=== PATIENT | male | born 1980 | race Hispanic/Latino ===

== ENCOUNTER 2025-06-09 14:35 | Emergency (ER) | payer MEDICAID, SELFPAY ==
[2025-06-09 14:40] VITALS: BP 110/83
[2025-06-09 14:44] VITALS: BMI 25.9
[2025-06-09] MEDS: NSS 1000 IV (14:53)
[2025-06-09 15:00] VITALS: BP 95/57
[2025-06-09 15:10] LABS: Hematocrit 40.4 % (39.0-52.0); Hemoglobin 13.7 g/dL (13.0-18.0); Mean Corp Hgb Conc. 33.9 g/dL (33.0-37.0); Mean Corpuscular Volume 94.6 fL (80.0-94.0); Nucleated Red Blood Cells % 0 % (-); Platelet Count 248 10^3/uL (130-400); Red Cell Dist. Width 13.4 % (11.5-14.5)
--- NOTE | 2025-06-09 15:23 | ED.GENMED ---
History of Present Illness
<Mendel Phillips MD - Last Filed: 06/09/25 19:59>
General
Chief Complaint: Overdose Unintentional
Source: patient and ambulance crew
Exam Limitations: clinical condition
Time Seen by Provider: 06/09/25 14:47
History of Present Illness
History of Present Illness:
44-year-old male apparently was at work and was staring. He was slow to respond at work. He became belligerent. Threw a chair. Police were called. Threw water at an officer. Then went into a karate kick move to defend himself. Admits to some
alcohol and THC and PCP last evening. Denies suicidal or homicidal ideation. Denies any complaints. Required 5 of Versed prior to ER arrival.
Past History
<Mendel Phillips MD - Last Filed: 06/09/25 19:59>
Past History
ED Past Medical History: Other (Alcohol/substance abuse)
ED Past Surgical History: Tonsilectomy and Other (ENT)
Social History
Tobacco: Smoker
Alcohol: Occasional
Drug: Other (PCP)
Employment: Employed
Review of Systems
<Mendel Phillips MD - Last Filed: 06/09/25 19:59>
Review of Systems
All Other Systems: Not applicable
Respiratory: Reports no symptoms
Cardiac: Reports no symptoms
ABD/GI: Reports no symptoms
Phy Exam
<Mendel Phillips MD - Last Filed: 06/09/25 19:59>
Physical Exam
Physical Exam:
GENERAL: Lethargic. Sleeping. However easily arousable. Will awaken and talk. Awake alert and oriented. Knows the president. No signs of trauma.
EYE: Orbits normal.
NECK: Supple, no significant adenopathy.
ENT: Pharynx without erythema
CARDIAC: Regular rate and rhythm without any obvious murmurs.
LUNGS: Clear breath sounds,normal
ABDOMEN: Soft, without focal tenderness or distention
NEUROLOGICAL: Alert and oriented , grossly non-focal. Lethargic and appears intoxicated.
SKIN: Warm and dry, no rash or lesion, no discoloration, skin intact.
MUSCULOSKELETAL: No edema,no deformity.Good color
PSYCH: Normal and appropriate interaction.
Course
<Mendel Phillips MD - Last Filed: 06/09/25 19:59>
Orders/Labs/Results
Orders:
Orders
06/09/25 14:46
EKG [Electrocardiogram (*1)] Urgent
Reason for Study: Chest Pain
EKG- Treatment ONCE
06/09/25 14:47
Cardiac Monitoring- Treatment ONCE
IV Insert/Care/Rem.- Treatment PRN
0.9% Sodium Chloride 1000 ml [Nss] 1,000 ml IV BOLUS
Pulse Ox/cont/shift [RESP] Stat
Quantity: 1
06/09/25 14:50
Acetaminophen Urgent
Alcohol Urgent
Complete Blood Count/With Diff Urgent
Comprehensive Metabolic Panel Urgent
Salicylate Urgent
06/09/25 18:12
Midazolam HCl [Versed] 5 mg .ROUTE .STK-MED ONE
06/09/25 18:16
Midazolam HCl [Versed] 5 mg IV NOW STA
06/09/25 18:35
CT Head W/o Iv Contrast Urgent
Comment:
Reason For Exam: Change in mental status
06/09/25 19:22
Haloperidol Lactate [Haldol] 5 mg .ROUTE .STK-MED ONE
Haloperidol Lactate [Haldol] 5 mg IV NOW STA
Midazolam HCl [Versed] 2 mg .ROUTE .STK-MED ONE
Midazolam HCl [Versed] 2 mg IV NOW STA
06/09/25 19:24
Fentanyl, Urine Urgent
Urinalysis Reflex To Culture Urgent
Date Specimen was Collected: 06/09/25
Time Specimen was Collected: 15:28
Urine Drug Abuse Screen Urgent
Date Specimen was Collected: 06/09/25
Time Specimen was Collected: 15:28
Urine Microscopic Reflex Cult Urgent
06/09/25 19:26
Electrocardiogram (*1) Urgent
Reason for Study: QTc Monitoring
Abnormal Lab Results
06/09/25 06/09/25
14:50 19:24
RBC 4.27 L 10^6/uL
(4.70-6.10)
MCV 94.6 H fL
(80.0-94.0)
MCH 32.1 H pg
(27.0-31.0)
Absolute Neuts (auto) 7.0 H 10^3/uL
(1.4-6.5)
Absolute Monos (auto) 1.3 H 10^3/uL
(0.1-0.6)
Lymphocytes % 19.2 L %
(20.5-51.1)
Monocytes % 12.3 H %
(1.7-9.3)
Glucose 116 H mg/dl
(70-99)
Ur Occult Blood Reflex 1+ A
(Negative)
Urine RBC 11-15 A /HPF
(0-2)
Salicylates < 1.0 L mg/dl
(2.0-20.0)
Acetaminophen < 10 L ug/ml
(10-30)
Ur Phencyclidine Scrn Positive H
(Negative)
U Marijuana (THC) Screen Positive H
(Negative)
06/09/25 14:50
06/09/25 14:50
Vital Signs
Initial and Last Documented VS:
Initial Vital Signs
Temp Pulse Resp
98.2 F 94 16
06/09/25 14:37 06/09/25 14:37 06/09/25 14:37
Last Documented Vital Signs
Temp Pulse Resp BP Pulse Ox
98.2 F 72 17 122/79 95
06/09/25 14:37 06/09/25 22:30 06/09/25 22:00 06/09/25 18:32 06/09/25 22:30
<Verenice Lehman MD - Last Filed: 06/10/25 01:04>
Orders/Labs/Results
Orders:
Orders
06/09/25 14:46
EKG [Electrocardiogram (*1)] Urgent
Reason for Study: Chest Pain
EKG- Treatment ONCE
06/09/25 14:47
Cardiac Monitoring- Treatment ONCE
IV Insert/Care/Rem.- Treatment PRN
0.9% Sodium Chloride 1000 ml [Nss] 1,000 ml IV BOLUS
Pulse Ox/cont/shift [RESP] Stat
Quantity: 1
06/09/25 14:50
Acetaminophen Urgent
Alcohol Urgent
Complete Blood Count/With Diff Urgent
Comprehensive Metabolic Panel Urgent
Salicylate Urgent
06/09/25 18:12
Midazolam HCl [Versed] 5 mg .ROUTE .STK-MED ONE
06/09/25 18:16
Midazolam HCl [Versed] 5 mg IV NOW STA
06/09/25 18:35
CT Head W/o Iv Contrast Urgent
Comment:
Reason For Exam: Change in mental status
06/09/25 19:22
Haloperidol Lactate [Haldol] 5 mg .ROUTE .STK-MED ONE
Haloperidol Lactate [Haldol] 5 mg IV NOW STA
Midazolam HCl [Versed] 2 mg .ROUTE .STK-MED ONE
Midazolam HCl [Versed] 2 mg IV NOW STA
06/09/25 19:24
Fentanyl, Urine Urgent
Urinalysis Reflex To Culture Urgent
Date Specimen was Collected: 06/09/25
Time Specimen was Collected: 15:28
Urine Drug Abuse Screen Urgent
Date Specimen was Collected: 06/09/25
Time Specimen was Collected: 15:28
Urine Microscopic Reflex Cult Urgent
06/09/25 19:26
Electrocardiogram (*1) Urgent
Reason for Study: QTc Monitoring
Abnormal Lab Results
06/09/25 06/09/25
14:50 19:24
RBC 4.27 L 10^6/uL
(4.70-6.10)
MCV 94.6 H fL
(80.0-94.0)
MCH 32.1 H pg
(27.0-31.0)
Absolute Neuts (auto) 7.0 H 10^3/uL
(1.4-6.5)
Absolute Monos (auto) 1.3 H 10^3/uL
(0.1-0.6)
Lymphocytes % 19.2 L %
(20.5-51.1)
Monocytes % 12.3 H %
(1.7-9.3)
Glucose 116 H mg/dl
(70-99)
Ur Occult Blood Reflex 1+ A
(Negative)
Urine RBC 11-15 A /HPF
(0-2)
Salicylates < 1.0 L mg/dl
(2.0-20.0)
Acetaminophen < 10 L ug/ml
(10-30)
Ur Phencyclidine Scrn Positive H
(Negative)
U Marijuana (THC) Screen Positive H
(Negative)
06/09/25 14:50
06/09/25 14:50
Vital Signs
Initial and Last Documented VS:
Initial Vital Signs
Temp Pulse Resp
98.2 F 94 16
06/09/25 14:37 06/09/25 14:37 06/09/25 14:37
Last Documented Vital Signs
Temp Pulse Resp BP Pulse Ox
98.2 F 72 17 122/79 95
06/09/25 14:37 06/09/25 22:30 06/09/25 22:00 06/09/25 18:32 06/09/25 22:30
<Mendel Phillips MD - Last Filed: 06/09/25 19:59>
MDM/Problems Addressed
Differential Diagnosis Includes:
Suspect issues are secondary to substance/alcohol abuse. Doubt other medical etiology. No signs of trauma. Medically stable and nonfocal. Also currently somewhat lethargic from the Versed. Nothing described decayed suicidal or homicidal
ideation. Nothing to describe a psychiatric committal at this time. Will check electrolytes urine drug screen alcohol monitor monitor pulse ox.
<Mendel Phillips MD - Last Filed: 06/09/25 19:59>
*Radiology
Radiology exam reviewed: radiology read reviewed (Negative)
*Pulse Oximetry
SaO2: 96
Oxygen Mode of Delivery: Room air
Patient hypoxic: no
*EKG
Interpreted by ED Provider?: Yes
Interpretation: normal
Comparison EKG: no comparison EKG present
Heart Rate: 91
Rate: normal
Rhythm: sinus
Climax: normal axis
Interval: normal interval
QRS Pattern: normal QRS
Ischemia: no ischemia
*Template Maker Interpretation
Rate: normal
Interpretation: normal
Heart Rate: 90
Rhythm: sinus
<Verenice Lehman MD - Last Filed: 06/10/25 01:04>
Data Reviewed
Source: patient
<Verenice Lehman MD - Last Filed: 06/10/25 01:04>
Patient Management
Escalation/DeEscalation of care consider admission/obs:
Patient is awake, alert and walking around steadily at 1:00 AM.
He is much more reasonable and cooperative.
Police are escorting patient out due to the fact that he has an outstanding warrant for his arrest.
<Mendel Phillips MD - Last Filed: 06/09/25 19:59>
Update Note
Update Note:
1830.... Patient seemed to wake up doing a dance moving around somewhat agitated. Seemed alert. Doubt seizure. Concerned about danger to himself. We did give him a repeat dose of Versed. We do not have any phone numbers to call. Or any other
information
1914... Patient becoming more agitated. Exposing himself. Yelling at staff. Requires more sedation. We have tried to attempt to get hold of family with no success.
1999.... Currently sleeping and resting comfortably. Police got involved because of marijuana and a knife. He apparently is under arrest/warrant in [place]. He is currently calm resting comfortably stable vital signs. PCP positive. We will
observe him until he is awake. If he is awake able to ambulate and stable he will be discharged to the police.
ED Attending Note
<Mendel Phillips MD - Last Filed: 06/09/25 19:59>
-
Portions of this chart may have been created with voice recognition software.� Occasional wrong word or��sound alike� substitutions may have occurred due to the inherent limitations of voice recognition software.
Discharge Plan
Departure
Patient Disposition: Correction
Date of Disposition: 06/10/25
Time of Disposition: 00:57
Patient with high blood pressure during this ER visit?: No
Condition: Good
Covid-19: Not Applicable
Discharge Problem:
Altered mental status, PCP use
Instructions: Substance use disorder - ED (DC)
Referrals:
UNKNOWN,NO INTERVIEW [Family Provider]
Activity Restrictions/Additional Instructions:
Patient is medically cleared for incarceration
Interventions
Interventions:
*Risk Screen - Suicide Last Done: 06/09/25 14:47
*General Assessment Last Done: 06/09/25 14:47
*Neglect/Abuse Screening Last Done: 06/09/25 14:47
*ED- Fall Risk Assessment Last Done: 06/09/25 14:47
*ED COVID-19 Vaccine History Last Done: 06/09/25 21:43
*ED Influenza Vaccine History Last Done: 06/09/25 21:43
ED- Cardiac Assessment Last Done: 06/09/25 14:47
ED- Neurological Assessment Last Done: 06/09/25 14:47
ED-Psychological Assessment Last Done: 06/09/25 14:47
ED- Pulmonary Assessment Last Done: 06/09/25 14:47
Discharge Date and Time
Print Language: KHMER
[2025-06-09 15:31] LABS: ALT (SGPT) 24 U/L (0-50); AST (SGOT) 36 U/L (17-59); Acetaminophen < 10 ug/ml (10-30); Albumin 3.7 g/dl (3.5-5.0); Alkaline Phosphatase 42 U/L (38-126); Blood Urea Nitrogen 10 mg/dl (9-20); Calcium 8.7 mg/dl (8.4-10.2); Carbon Dioxide 25 mmol/L (22-30); Chloride 107 mmol/L (98-107); Estimated Creatinine Clearance 98 ml/min; Glucose 116 mg/dl (70-99); Potassium 4.2 mmol/L (3.5-5.1); Salicylate < 1.0 mg/dl (2.0-20.0); Sodium 138 mmol/L (135-145); Total Protein 6.7 g/dl (6.3-8.2); eGFR > 60.00
[2025-06-09 16:00] VITALS: BP 109/71
[2025-06-09] MEDS: VERSED 5 MG IV (18:19)
[2025-06-09 18:32] VITALS: BP 122/79
[2025-06-09] MEDS: VERSED 2 MG IV (19:25)
[2025-06-09] MEDS: HALDOL 5 MG IV (19:25)
[2025-06-09 19:31] LABS: Urine Character Clear (Clear)
--- NOTE | 2025-06-09 19:45 | EDRN ---
This RN along with Susan RN, Claritza RN, and Cesar RN in to see pt to attempt to place a line and obtain labs.
Pt became increasingly aggravated and aggressive towards staff. Pt attempting to hit, kick, and bite staff. made aware. See MA
[2025-06-09 19:53] LABS: Urine Squamous Cell >30 /LPF (Few)
--- NOTE | 2025-06-09 20:00 | EDRN ---
Assumed care of pt from previous RN. Urine sample obtained from previous RN. Pt resting on stretcher speaking with staff. Pt oriented on situation. Pt awake and oriented to time and self, knew he was in a hospital but did not know which one. Pt
informed why he is in the hospital and became frustrated when informed the doctor said he took drugs and was brought here from work. Attempted to ask pt if he had any family members or friends to call and pt redirecting conversation and responding
with vague answers. Pt calling out to staff members making inappropriate and sexual comments towards female RNs. Security at bedside. Knife and drugs found in pts pant pockets and given to security. Pt informed to stop making inappropriate comments
and proceeded to continue and rip off property assessment monitor, gown and attempted to pull his genitalia out of his underwear towards female staff. Pt attempted be redirected verbally but unsuccessful and not cooperating with staff. Pt yelling out, Dr. Phillips
notified. Order for IV meds given, see MAR.
== END 2025-06-10 01:00 ==
LOC: EMR 14:35
PROVIDERS: EMERGENCY PHYSICIAN Emergency Medicine
DX: R41.82 Altered mental status, unspecified (principal); F19.10 Other psychoactive substance abuse, uncomplicated; F10.90 Alcohol use, unspecified, uncomplicated; F17.200 Nicotine dependence, unspecified, uncomplicated
CPT/HCPCS: 99284; 96374; 96375; 96376; 70450; 80053; 80143; 80179; 80306; 80307; 81003; 81015; 82077; 85025; 93005